=== PATIENT | male | born 1990 | race Caucasian/White ===

== ENCOUNTER 2017-08-27 09:22 | Emergency (ER) | payer MEDICAID ==
[~2017-08-27] VITALS: Ht 182.9 cm; Wt 74.0 kg
[~2017-08-27 09:22] MED LIST: IBUP-1984 PO; NO HOME MEDS; TRAM50TA2 PO
[2017-08-27] MEDS ORDERED: AZIT-57 PO (10:22)
[2017-08-27] MEDS ORDERED: BENZ-16 PO (10:22)
[2017-08-27] MEDS ORDERED: GUAI1TBM19 PO (10:22)
[2017-08-27 10:28] VITALS: BP 133/73
== END 2017-08-27 10:29 | disposition home or self-care (01) ==
LOC: ER 09:23
DX: J18.1 Lobar pneumonia, unspecified organism (principal); F12.10 Cannabis abuse, uncomplicated; Z79.899 Other long term (current) drug therapy
CPT/HCPCS: 71046; 99284

== ENCOUNTER 2018-05-21 12:23 | Emergency (ER) | payer MEDICAID ==
[~2018-05-21] VITALS: Ht 182.9 cm; Wt 75.0 kg
[~2018-05-21 12:23] MED LIST changes: +GUAI1TBM19 PO
[2018-05-21 12:33] VITALS: BP 138/72
[2018-05-21 12:54] LABS: CLARITY,URINE CLEAR (Clear); COLOR,URINE YELLOW (Yellow); GLUCOSE, URINE NEGATIVE (Neg); KETONES,URINE NEGATIVE (Neg); LEUKOCYTE ESTERASE ,URINE NEGATIVE (Neg); NITRITES, URINE NEGATIVE (Neg); OCCULT BLOOD,URINE NEGATIVE (Neg); PROTEIN,URINE NEGATIVE (Neg); UA COLLECTION TYPE VOIDED; UROBILINOGEN,URINE 0.2 E.U/dL (0.2-1.0)
[2018-05-21] MEDS ORDERED: DOXY100C43 PO (13:58)
== END 2018-05-21 14:33 | disposition home or self-care (01) ==
LOC: ER 12:24
DX: A64 Unspecified sexually transmitted disease (principal); M54.5 Low back pain; F12.10 Cannabis abuse, uncomplicated
CPT/HCPCS: 36415; 81003; 87491; 99283

== ENCOUNTER 2018-07-15 21:34 | Emergency (ER) | payer MEDICAID, OTHER ==
[~2018-07-15] VITALS: Ht 182.9 cm; Wt 75.0 kg
[2018-07-15] MEDS ORDERED: HYDROcodone/acetaminophen 5mg/325mg tablet PO ONE (22:55)
[2018-07-15] MEDS ORDERED: IBUP-1985 PO (22:55)
[2018-07-15] MEDS ORDERED: PENI500T2 PO (22:55)
[2018-07-15 23:13] VITALS: BP 145/87
== END 2018-07-15 23:15 | disposition home or self-care (01) ==
LOC: ER 21:35
DX: K08.89 Other specified disorders of teeth and supporting structures (principal); F12.90 Cannabis use, unspecified, uncomplicated; Z79.2 Long term (current) use of antibiotics; Z79.899 Other long term (current) drug therapy
CPT/HCPCS: 99283

== ENCOUNTER 2025-04-06 23:25 | Emergency (ER) | payer MEDICAID ==
[~2025-04-06] VITALS: Ht 185.4 cm; Wt 72.4 kg
[~2025-04-06 23:25] MED LIST changes: +IBUP600T52 PO
[2025-04-06 23:26] VITALS: TEMP 99.4
--- NOTE | 2025-04-06 23:42 | ELECTROCARDIOGRAPH REPORT ---
[facility] Test Date: 2025-04-06 Test Time: 23:39:48 Pat Name: PERNELL LIU Department: [facility] Patient ID: [id number] Room: Gender: M Irrigation Specialist: FARRUKH : 1990 Requested By: RAVIN MCINTOSH Order Number: [id number] Reading MD: Measurements Intervals [place] Rate: 96 P: 44 OH: 105 QRS: 79 QRSD: 96 T: -40 QT: 278 QTc: 352 Interpretive Statements Sinus rhythm Short [place] interval Borderline repolarization abnormality Baseline wander in lead(s) II,III,aVF,V5,V6 Please click the below link to view image of tracing.
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
[2025-04-06 23:57] LABS: MEAN PLATELET VOLUME 9.1 FL (7.4-10.4); RED CELL DISTRIBUTION WIDTH 13.8 % (11.5-14.5)
[2025-04-07 00:17] LABS: CREATININE 1.05 MG/DL (0.60-1.10); PRO BRAIN NATRIURETIC PEPTIDE < 30 PG/ML (0-125); TOTAL CARBON DIOXIDE 30.1 MMOL/L (24-32); eCRCL 102 ML/MIN; eGFR 81 ML/MIN
--- NOTE | 2025-04-07 00:43 | RADIOLOGY REPORT ---
EXAM: CT CT HEAD INDICATION: fall with pain TECHNIQUE: CT of the head without intravenous contrast. Radiation Dose Information: CT Dose: CTDI volume is 63.77 mGy. Dose-length product is 1135.7 mGy*cm The dose indicators for CT are the volume Computed Tomography (CT) Dose Index (CTDIvol) and the Dose Length Product (DLP), and are measured in units of mGy and mGy-cm, respectively. These indicators are not patient dose, but values generated from the CT scanner acquisition factors. The report includes radiation exposure data for exposures received during this examination. COMPARISON: None FINDINGS: There is no evidence of acute intracranial hemorrhage, extra-axial collection, mass effect, midline shift, herniation or hydrocephalus. The ventricles, sulci and cisterns are age appropriate. The david-white differentiation is intact.= The visualized paranasal sinuses and mastoid air cells are clear. The surrounding soft tissues and osseous structures are unremarkable. IMPRESSION: No acute intracranial abnormality.
[2025-04-07 01:10] VITALS: BP 130/84; PULSE 94; RESP 17; O2SAT 96
== END 2025-04-07 01:12 | disposition home or self-care (01) ==
LOC: ER 23:26
DX: S06.0XAA Concussion with loss of consciousness status unknown, initial encounter (principal); E87.8 Other disorders of electrolyte and fluid balance, not elsewhere classified; R06.02 Shortness of breath; F12.90 Cannabis use, unspecified, uncomplicated; V18.4XXA Pedal cycle driver injured in noncollision transport accident in traffic accident, initial encounter; Y93.55 Activity, bike riding; Y92.89 Other specified places as the place of occurrence of the external cause; Y99.8 Other external cause status
CPT/HCPCS: 36415; 70450; 80048; 83880; 84484; 85025; 93005; 99284